=== PATIENT | female | born 1965 | race Hispanic/Latino ===

== ENCOUNTER 2023-10-30 11:59 | Emergency (ER) | payer OTHER, SELFPAY ==
[2023-10-30 12:02] VITALS: BP 155/88
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
[2023-10-30] MEDS: NSS 1000 IV (13:35)
[2023-10-30 13:59] LABS: % Basophils 0.4 % (0-2); % Eosinophils 1.4 % (0-6); % Immature Granulocytes 0.5 % (0-0.5); % Lymphocytes 25.5 % (20.5-51.1); % Monocytes 6.4 % (1.7-9.3); % Neutrophils 65.8 % (42.2-75.2); Absolute Eosinophils 0.1 10^3/uL (0-0.7); Absolute Immature Granulocytes 0.1 10^3/uL (0-0.05); Absolute Lymphocytes 2.4 10^3/uL (1.2-3.4); Absolute Monocytes 0.6 10^3/uL (0.1-0.6); Absolute Neutrophils 6.2 10^3/uL (1.4-6.5); Hematocrit 37.1 % (37.0-47.0); Hemoglobin 12.7 g/dL (12.0-16.0); Mean Corp Hgb Conc. 34.2 g/dL (33.0-37.0); Mean Corpuscular Hgb 30.7 pg (27.0-31.0); Mean Corpuscular Volume 89.6 fL (81.0-99.0); Mean Platelet Volume 11.6 fL (7.4-10.4); Nucleated Red Blood Cells % 0 %; Platelet Count 206 10^3/uL (130-400); Red Blood Cell Count 4.14 10^6/uL (4.20-5.40); Red Cell Dist. Width 13.5 % (11.5-14.5); White Blood Cell Count 9.4 10^3/uL (4.8-10.8)
[2023-10-30 14:15] LABS: ALT (SGPT) 67 U/L (0-35); AST (SGOT) 56 U/L (14-36); Albumin 4.1 g/dl (3.5-5.0); Alkaline Phosphatase 102 U/L (38-126); Blood Urea Nitrogen 20 mg/dl (7-17); Calcium 10.4 mg/dl (8.4-10.2); Carbon Dioxide 29 mmol/L (22-30); Chloride 102 mmol/L (98-107); Glucose 122 mg/dl (70-99); Potassium 4.5 mmol/L (3.5-5.1); Sodium 136 mmol/L (135-145); Total Bilirubin 0.7 mg/dl (0.2-1.3); eGFR > 60.00
[2023-10-30] MEDS: DUONEB 3 ML INH (15:18)
[2023-10-30] MEDS: DECADRON 10 MG IV (15:41)
[2023-10-30 15:43] VITALS: BP 139/77
== END 2023-10-30 16:13 | disposition home or self-care (01) ==
LOC: EMR 11:59
PROVIDERS: Registered Nurse; EMERGENCY PHYSICIAN Emergency Medicine
DX: J45.901 Unspecified asthma with (acute) exacerbation (principal); I10 Essential (primary) hypertension; K21.9 Gastro-esophageal reflux disease without esophagitis; E03.9 Hypothyroidism, unspecified; E78.00 Pure hypercholesterolemia, unspecified; Z87.891 Personal history of nicotine dependence
CPT/HCPCS: 99285; 96374; 96361; 94640; 71275; 80053; 85025; Q9967

== ENCOUNTER 2023-12-12 11:28 | Emergency (ER) | payer OTHER, SELFPAY ==
[2023-12-12 11:55] VITALS: BP 133/83
--- NOTE | 2023-12-12 12:00 | ED.PDOC.TRB ---
ED Provider Triage
-
Patient seen by provider in Triage?: Seen in Triage
58-year-old female presenting to the ER with nausea vomiting and diarrhea since 3 PM yesterday. Symptoms continued this morning. Family member at home sick with similar symptoms but the patient states her symptoms seem to be worse. Did not take
anything prior to arrival. Noted GI history but patient states this feels different. History of previous cholecystectomy and appendectomy. Patient appears uncomfortable but otherwise stable. Labs ordered and will treat patient with a tablet of
Zofran ODT.
[2023-12-12] MEDS: ZOFRAN ODT (ORALLY DISINTEGRATING) 4 MG PO (12:03)
[2023-12-12 12:20] LABS: % Basophils 0.8 % (0-2); % Eosinophils 1.3 % (0-6); % Immature Granulocytes 0.4 % (0-0.5); % Lymphocytes 24.7 % (20.5-51.1); % Monocytes 7.3 % (1.7-9.3); % Neutrophils 65.5 % (42.2-75.2); Absolute Basophils 0.1 10^3/uL (0-0.2); Absolute Eosinophils 0.1 10^3/uL (0-0.7); Absolute Lymphocytes 1.9 10^3/uL (1.2-3.4); Absolute Monocytes 0.6 10^3/uL (0.1-0.6); Hematocrit 37.1 % (37.0-47.0); Hemoglobin 12.6 g/dL (12.0-16.0); Mean Corpuscular Hgb 29.6 pg (27.0-31.0); Mean Corpuscular Volume 87.3 fL (81.0-99.0); Nucleated Red Blood Cells % 0 %; Red Blood Cell Count 4.25 10^6/uL (4.20-5.40); Red Cell Dist. Width 13.2 % (11.5-14.5); White Blood Cell Count 7.7 10^3/uL (4.8-10.8)
[2023-12-12 12:29] LABS: ALT (SGPT) 66 U/L (0-35); AST (SGOT) 68 U/L (14-36); Albumin 4.2 g/dl (3.5-5.0); Alkaline Phosphatase 119 U/L (38-126); Blood Urea Nitrogen 24 mg/dl (7-17); Calcium 9.7 mg/dl (8.4-10.2); Carbon Dioxide 24 mmol/L (22-30); Chloride 102 mmol/L (98-107); Glucose 109 mg/dl (70-99); Lipase 34 U/L (23-300); Potassium 3.6 mmol/L (3.5-5.1); Sodium 137 mmol/L (135-145); Total Bilirubin 1.7 mg/dl (0.2-1.3); Total Protein 7.9 g/dl (6.3-8.2); eGFR > 60.00
[2023-12-12 13:19] VITALS: BP 136/78; BMI 27.9
--- NOTE | 2023-12-12 13:38 | ED.GENMED ---
History of Present Illness
General
Chief Complaint: Abdominal Symptoms
Time Seen by Provider: 12/12/23 13:15
Travel History
Have you had any contact with someone who has COVID-19?: No
Do you have any symptoms of coronavirus? Fever > 100 degrees, chills, cough, shortness of breath, sore throat, loss of taste or smell, muscle aches, or headache?: No
History of Present Illness
History of Present Illness:
58-year-old female presents to the emergency department for evaluation of nausea vomiting and diarrhea as well as right lower abdominal pain for the past 24 hours. Does not tolerated any p.o. fluids today. No fevers or chills. Prior abdominal
surgeries include cholecystectomy and appendectomy
Past History
Past History
ED Past Medical History: Asthma, GERD, HTN, Hypercholesterolemia, Hypothyroidism, Other (anemia) and Other (migraines)
ED Past Surgical History: Appendectomy, Cholecystectomy and Other (Tubal ligation)
Social History
Tobacco: Former smoker
Alcohol: None
Personal:
Living: alone
Employment: Employed
Family History
Family History: Other (No significant)
Review of Systems
Review of Systems
Allergies reviewed?: Yes
All Other Systems: ROS reviewed and negative except as documented in HPI and ROS
Phy Exam
Physical Exam
Physical Exam:
GEN: Well appearing, NAD, WDWN
Eyes: PERRLA, EOMs intact, no scleral icterus
HENT: NCAT, oral mucosa moist
Lungs: CTAB, no wheezes, rales, rhonchi, normal chest wall excursion
Cardiac: RRR, no M/R/G, no peripheral edema. Radial pulses 2+ bilat
Abdomen: Soft, moderate tenderness to the right lower quadrant and suprapubic space
Neuro: AO x 3
MSK: No gross deformity or ecchymosis. No edema. No digital clubbing
Skin: No rashes, petechiae. Normal color, no pallor or jaundice.
Psych: Calm, cooperative, proper hygiene
Course
Orders/Labs/Results
Orders:
Orders
12/12/23 11:59
Ondansetron Orally Disint [Zofran Odt (Orally Disintegrating)] 4 mg PO NOW STA
12/12/23 12:02
Ondansetron Orally Disint [Zofran Odt (Orally Disintegrating)] 4 mg .ROUTE .STK-MED ONE
12/12/23 12:09
Complete Blood Count/With Diff Urgent
Comprehensive Metabolic Panel Urgent
Lipase Urgent
12/12/23 13:39
CT Abd/Pel (IV only)-DH only Urgent
Comment:
Reason For Exam: lower abd pain/vomiting
Ketorolac [Toradol] 15 mg IV NOW STA
Ondansetron Injectable [Zofran] 4 mg IV NOW STA
12/12/23 14:58
Urinalysis Reflex To Culture Urgent
Date Specimen was Collected: 12/12/23
Time Specimen was Collected: 14:56
Urine Microscopic Reflex Cult Urgent
Abnormal Lab Results
12/12/23 12/12/23
12:09 14:58
BUN 24 H mg/dl
(7-17)
Glucose 109 H mg/dl
(70-99)
Total Bilirubin 1.7 H mg/dl
(0.2-1.3)
AST 68 H U/L
(14-36)
ALT 66 H U/L
(0-35)
Urine Ketones Trace A
(Negative)
Urine Bilirubin 1+ A
(Negative)
Leukocyte Esterase Rfl Trace A
(Negative)
Urine Bacteria (Reflex) Few A
(Negative)
12/12/23 12:09
12/12/23 12:09
Vital Signs
Initial and Last Documented VS:
Initial Vital Signs
Temp Pulse Resp BP Pulse Ox
98.3 F 97 18 133/83 96
12/12/23 11:55 12/12/23 11:55 12/12/23 11:55 12/12/23 11:55 12/12/23 11:55
Last Documented Vital Signs
Temp Pulse Resp BP Pulse Ox
98.3 F 84 16 136/78 98
12/12/23 11:55 12/12/23 13:19 12/12/23 13:19 12/12/23 13:19 12/12/23 13:19
MDM/Problems Addressed
MDM/Problems Addressed:
Patient's workup is reassuring. Likely self-limited viral syndrome. She is informed of the abnormal CT finding of the narrowed rectosigmoid junction and advised to follow-up with GI as an outpatient for colonoscopy. Discussed supportive care and
return
*Critical Care Note
Total Time (30-74mins, 75-104mins- exclusive of procedures): Not Applicable
ED Attending Note
-
Portions of this chart may have been created with voice recognition software.� Occasional wrong word or��sound alike� substitutions may have occurred due to the inherent limitations of voice recognition software.
Discharge Plan
Departure
Patient Disposition: Home (Routine Discharge)
Date of Disposition: 12/12/23
Time of Disposition: 16:04
Patient with high blood pressure during this ER visit?: No
Discharge Problem:
Gastroenteritis
Instructions: Nausea and Vomiting, Adult (DC)
Prescriptions:
New
ondansetron 4 mg tablet,disintegrating
4 mg PO TIDPRN PRN (Reason: nausea/vomiting) Qty: 10 0RF
dicyclomine 10 mg capsule
10 mg PO TID Qty: 10 0RF
No Action
metformin 500 mg Tablet
500 mg PO BID
atorvastatin 10 mg Tablet
10 mg PO DAILY
metoprolol succinate 50 mg Tablet Extended Release 24 Hr
50 mg PO DAILY
omeprazole 40 mg Capsule,Delayed Release(Dr/Ec)
40 mg PO DAILY
acetaminophen [Tylenol Extra Strength] 500 mg Tablet
1,000 mg PO Q6H PRN (Reason: mild pain)
levothyroxine 125 mcg Tablet
125 mcg PO DAILY
hydrochlorothiazide 25 mg Tablet
25 mg PO DAILY
albuterol sulfate 90 mcg/actuation Hfa Aerosol Inhaler
2 puff INHALATION R Q6HPRN PRN (Reason: sob)
lisinopril 40 mg Tablet
40 mg PO DAILY
fluticasone propionate 50 mcg/actuation [place],Suspension
2 spray INTRANASAL DAILY PRN (Reason: allergies)
albuterol sulfate 0.63 mg/3 mL solution for nebulization
0.63 mg inhalation R Q4HPRN PRN (Reason: sob)
ipratropium-albuterol 0.5 mg-3 mg(2.5 mg base)/3 mL solution for nebulization
3 ml inhalation R QIDPRN PRN (Reason: shortness of breath or wheezing)
prednisone 50 mg tablet
50 mg PO DAILY 5 Days Qty: 5 0RF
benzonatate 200 mg capsule
200 mg PO BID PRN (Reason: Cough) Qty: 20 0RF
Referrals:
Joe Escalante MD [Active] -
Cash Prado DO [Family Provider] -
Activity Restrictions/Additional Instructions:
Your CT scan shows a nonspecific narrowing of your large intestine. This should be followed up by a government affairs specialist
Interventions
Interventions:
*Risk Screen - Suicide Last Done: 12/12/23 13:21
*General Assessment Last Done: 12/12/23 13:21
*Neglect/Abuse Screening Last Done: 12/12/23 13:21
ED- Fall Risk Assessment Last Done: 12/12/23 16:39
*ED COVID-19 Vaccine History Last Done: 12/12/23 11:55
*Nursing Disposition Last Done: 12/12/23 16:39
RU-Skypsn-Kysxyhxbae Assessment Last Done: 12/12/23 13:21
Discharge Date and Time
Discharge Date/Time: 12/12/23 16:39
Print Language: SCOTTISH
[2023-12-12] MEDS: TORADOL 15 MG IV (14:10)
[2023-12-12] MEDS: ZOFRAN 4 MG IV (14:10)
[2023-12-12 15:45] LABS: Urine Albumin Negative (Neg - Trace); Urine Bilirubin 1+ (Negative); Urine Character Clear (Clear); Urine Color Yellow; Urine Glucose Negative (Negative); Urine Ketone Trace (Negative); Urine Leukocyte Trace (Negative); Urine Nitrite Negative (Negative); Urine Occult Blood Negative (Negative); Urine Specific Gravity 1.015 (<1.030); Urine Urobilinogen 1+ (Neg - 1+)
[2023-12-12 16:15] LABS: Urine Bacteria Few (Negative); Urine Red Blood Cell 0-2 /HPF (0-2); Urine Squamous Cell 16-20 /LPF (Few); Urine White Cell 0-2 /HPF (0-5)
[2023-12-12 16:16] LABS: Urine Mucus Few
== END 2023-12-12 16:39 | disposition home or self-care (01) ==
LOC: EMR 11:28
PROVIDERS: Physician Assistant; Physician Assistant Medical; EMERGENCY PHYSICIAN Student in an Organized Health Care Education/Training Program; FAMILY PHYSICIAN Family Medicine
DX: K52.9 Noninfective gastroenteritis and colitis, unspecified (principal); I10 Essential (primary) hypertension; R93.5 Abnormal findings on diagnostic imaging of other abdominal regions, including retroperitoneum; K21.9 Gastro-esophageal reflux disease without esophagitis; E03.9 Hypothyroidism, unspecified; E78.00 Pure hypercholesterolemia, unspecified; J45.909 Unspecified asthma, uncomplicated; D64.9 Anemia, unspecified; G43.909 Migraine, unspecified, not intractable, without status migrainosus; Z87.891 Personal history of nicotine dependence; Z90.49 Acquired absence of other specified parts of digestive tract
CPT/HCPCS: 99285; 96375; 96374; 74177; 80053; 81003; 81015; 83690; 85025; Q9967